=== PATIENT | male | born 1965 | race African-American/Black ===

== ENCOUNTER 2016-08-02 20:53 | Inpatient (IN) | payer OTHER ==
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
[2016-08-02 21:29] VITALS: BMI 31.6
[2016-08-02] MEDS ORDERED: NICOTINE POLACRILEX 2 MG GUM BC PRN (21:29)
[2016-08-02] MEDS ORDERED: MAG HYDROX/AL HYDROX/SIMETH 30 ML UNIT-DOSE CUP PO PRN (21:29)
[2016-08-02] MEDS ORDERED: guaiFENesin/D-METHORPHAN HB 10 ML UNIT-DOSE CUPS PO PRN (21:29)
[2016-08-02] MEDS ORDERED: IBUPROFEN 400 MG TABLET (FP) PO PRN (21:29)
[2016-08-02] MEDS ORDERED: MENTHOL/PHENOL 1 EACH UD MM PRN (21:29)
[2016-08-02] MEDS ORDERED: hydrOXYzine PAMOATE 50 MG CAPSULE (FP) PO PRN (21:29)
[2016-08-02] MEDS ORDERED: LOPERAMIDE HCL 2 MG CAPSULE PO PRN (21:29)
[2016-08-02] MEDS ORDERED: ACETAMINOPHEN 325 MG TABLET (FP) PO PRN (21:29)
[2016-08-02] MEDS ORDERED: MAGNESIUM HYDROX 2400MG/30ML ORAL SUSPENSION 30 ML CUP PO PRN (21:29)
[2016-08-02] MEDS ORDERED: MAGNESIUM CITRATE 300 ML BOTTLE PO PRN (21:29)
[2016-08-02] MEDS ORDERED: P-EPHED 60MG/TRIPROLIDI 2.5MG TABLET PO PRN (21:29)
[2016-08-02] MEDS ORDERED: chlordiazePOXIDE HCL 25 MG CAPSULE PO PRN (21:29)
[2016-08-02] MEDS: NICOTINE 21 MG/24 HOURS TOPICAL PATCH TD SCH (23:01)
[2016-08-02] MEDS: chlordiazePOXIDE HCL 25 MG CAPSULE PO SCH (23:02)
[2016-08-02] MEDS: THIAMINE HCL 100 MG TABLET (FP) PO SCH (23:03)
[2016-08-02] MEDS: diphenhydrAMINE HCL 50 MG CAPSULE PO PRN (23:03)
[2016-08-03] MEDS: chlordiazePOXIDE HCL 25 MG CAPSULE PO SCH ×4 (05:35→22:10)
--- NOTE | 2016-08-03 10:21 | EKG ---
Test Reason : Blood Pressure : / mmHG Vent. Rate : 044 BPM Atrial Rate : 044 BPM P-R Int : 152 ms QRS Dur : 084 ms QT Int : 436 ms P-R-T Axes : 070 056 004 degrees QTc Int : 372 ms MARKED SINUS BRADYCARDIA ABNORMAL ECG WHEN COMPARED WITH ECG OF 02-AUG-2016 21:31, QT HAS SHORTENED Confirmed by AKASH SLOAN MD ([id number]) on 08/03/2016 10:20:50 AM Referred By: Confirmed By:AKASH SLOAN MD
--- NOTE | 2016-08-03 10:22 | EKG ---
Test Reason : Blood Pressure : / mmHG Vent. Rate : 057 BPM Atrial Rate : 057 BPM P-R Int : 150 ms QRS Dur : 088 ms QT Int : 448 ms P-R-T Axes : 060 060 -03 degrees QTc Int : 436 ms SINUS BRADYCARDIA WITH SINUS ARRHYTHMIA NONSPECIFIC ST ABNORMALITY ABNORMAL ECG NO PREVIOUS ECGS AVAILABLE Confirmed by AKASH SLOAN MD ([id number]) on 08/03/2016 10:21:47 AM Referred By: Confirmed By:AKASH SLOAN MD
[2016-08-03] MEDS: PRENATAL VITAMINS W/ FOLIC ACID TABLET (FP) PO SCH (10:25)
[2016-08-03] MEDS: NICOTINE 21 MG/24 HOURS TOPICAL PATCH TD SCH (10:25)
[2016-08-03 10:30] LABS: MCH 26.2 pg (25.7-33.7); MCHC 32.9 g/dl (32.0-35.9); MEAN CELL VOLUME 79.7 fl (80-96); MEAN PLT VOLUME 9.6 fl (7.5-11.1); PLATELET COUNT 181 K/MM3 (134-434); RDW 15.6 % (11.9-15.9); WHITE BLOOD COUNT 6.1 K/mm3 (4.0-10.0)
[2016-08-03 10:36] LABS: ALBUMIN 3.5 g/dl (3.4-5.0); ANION GAP 8 (8-16); BILIRUBIN,TOTAL 0.5 mg/dL (0.2-1.0); CALCIUM 8.8 mg/dL (8.5-10.1); CO2 27 mmol/L (21-32); CREATININE 1.2 mg/dL (0.7-1.3); GLUCOSE,RANDOM 95 mg/dL (74-106); SGOT/AST 16 U/L (15-37); SGPT/ALT 28 U/L (12-78); TOT PROT 6.6 g/dl (6.4-8.2)
[2016-08-03 10:37] LABS: ALK PHOS 55 U/L (45-117)
--- NOTE | 2016-08-03 15:07 | PN ---
S CIWA - CIWA Score Nausea/Vomitin Muscle Tremors: 4-Moderate,w/Arms Extend Anxiety: 4-Mod. Anxious/Guarded Agitation: 4-Moderately Restless Paroxysmal Sweats: 2 Orientation: 0-Oriented Tacttile Disturbances: 1-Very Mild Itch/Numbness Auditory Disturbances: 0-None Visual Disturbances: 0-None Headache: 2-Mild CIWA-Ar Total Score: 20 BHS Progress Note (SOAP) Subjective: Sweating, restless, anxious, interrupted sleep, nausea Objective: 08/03/16 15:06 Last Vital Signs Temp Pulse Resp BP Pulse Ox 97.1 F L 67 18 125/67 08/03/16 13:22 08/03/16 13:22 08/03/16 13:22 08/03/16 13:22 Laboratory Tests 08/03/16 08/03/16 08/03/16 07:50 07:50 07:50 WBC 6.1 RBC 5.11 Hgb 13.4 Hct 40.7 MCV 79.7 L MCHC 32.9 RDW 15.6 Plt Count 181 MPV 9.6 Sodium 144 Potassium 4.1 Chloride 109 H Carbon Dioxide 27 Anion Gap 8 BUN 14 Creatinine 1.2 Creat Clearance w eGFR > 60 Random Glucose 95 Calcium 8.8 Total Bilirubin 0.5 AST 16 ALT 28 Alkaline Phosphatase 55 Total Protein 6.6 Albumin 3.5 RPR Titer Nonreactive Labs noted Assessment: 08/03/16 15:07 Withdrawal symptoms Plan: Continue detox
[2016-08-03] MEDS: diphenhydrAMINE HCL 50 MG CAPSULE PO PRN (22:10)
[2016-08-03] MEDS: THIAMINE HCL 100 MG TABLET (FP) PO SCH (22:10)
[2016-08-04] MEDS: chlordiazePOXIDE HCL 25 MG CAPSULE PO SCH ×3 (05:41→17:32)
[2016-08-04] MEDS: PRENATAL VITAMINS W/ FOLIC ACID TABLET (FP) PO SCH (10:13)
[2016-08-04] MEDS: NICOTINE 21 MG/24 HOURS TOPICAL PATCH TD SCH (10:14)
[2016-08-04 10:18] LABS: URINE APPEARANCE CLEAR; URINE BILIRUBIN NEGATIVE (NEGATIVE); URINE BLOOD NEGATIVE (NEGATIVE); URINE COLOR STRAW; URINE GLUCOSE (UA) NEGATIVE (NEGATIVE); URINE KETONE NEGATIVE (NEGATIVE); URINE LEUK ESTERASE NEGATIVE (NEGATIVE); URINE NITRITE NEGATIVE (NEGATIVE); URINE PROTEIN NEGATIVE (NEGATIVE); URINE UROBILINOGEN NEGATIVE E.U./dl (0.2-1.0)
--- NOTE | 2016-08-04 14:24 | PN ---
S CIWA - CIWA Score Nausea/Vomitin-No Nausea/No Vomiting Muscle Tremors: 4-Moderate,w/Arms Extend Anxiety: 3 Agitation: 3 Paroxysmal Sweats: 3 Orientation: 0-Oriented Tacttile Disturbances: 0-None Auditory Disturbances: 0-None Visual Disturbances: 0-None Headache: 0-None Present CIWA-Ar Total Score: 13 S Progress Note (SOAP) Subjective: Anxiety,tremors,sweating,interrupted sleep,restless Objective: 08/04/16 14:23 Vital Signs - 8 hr 08/04/16 08/04/16 08/04/16 06:47 07:36 09:51 Temperature 97.7 F 97.6 F Pulse Rate 75 67 83 Respiratory 18 18 Rate Blood Pressure 158/102 160/94 141/94 08/04/16 13:49 Temperature 98.1 F Pulse Rate 81 Respiratory 18 Rate Blood Pressure 134/86 Laboratory Last Values WBC 6.1 K/mm3 (4.0-10.0) 08/03/16 07:50 RBC 5.11 M/mm3 (4.00-5.60) 08/03/16 07:50 Hgb 13.4 GM/dL (11.7-16.9) 08/03/16 07:50 Hct 40.7 % (35.4-49) 08/03/16 07:50 MCV 79.7 fl (80-96) L 08/03/16 07:50 MCHC 32.9 g/dl (32.0-35.9) 08/03/16 07:50 RDW 15.6 % (11.9-15.9) 08/03/16 07:50 Plt Count 181 K/MM3 (134-434) 08/03/16 07:50 MPV 9.6 fl (7.5-11.1) 08/03/16 07:50 Sodium 144 mmol/L (136-145) 08/03/16 07:50 Potassium 4.1 mmol/L (3.5-5.1) 08/03/16 07:50 Chloride 109 mmol/L (98-107) H 08/03/16 07:50 Carbon Dioxide 27 mmol/L (21-32) 08/03/16 07:50 Anion Gap 8 (8-16) 08/03/16 07:50 BUN 14 mg/dL (7-18) 08/03/16 07:50 Creatinine 1.2 mg/dL (0.7-1.3) 08/03/16 07:50 Creat Clearance w eGFR > 60 (>60) 08/03/16 07:50 Random Glucose 95 mg/dL (74-106) 08/03/16 07:50 Calcium 8.8 mg/dL (8.5-10.1) 08/03/16 07:50 Total Bilirubin 0.5 mg/dL (0.2-1.0) 08/03/16 07:50 AST 16 U/L (15-37) 08/03/16 07:50 ALT 28 U/L (12-78) 08/03/16 07:50 Alkaline Phosphatase 55 U/L (45-117) 08/03/16 07:50 Total Protein 6.6 g/dl (6.4-8.2) 08/03/16 07:50 Albumin 3.5 g/dl (3.4-5.0) 08/03/16 07:50 Urine Color Straw 08/04/16 08:00 Urine Appearance Clear 08/04/16 08:00 Urine pH 6.0 (5.0-8.0) 08/04/16 08:00 Urine Protein Negative (NEGATIVE) 08/04/16 08:00 Urine Glucose (UA) Negative (NEGATIVE) 08/04/16 08:00 Urine Ketones Negative (NEGATIVE) 08/04/16 08:00 Urine Blood Negative (NEGATIVE) 08/04/16 08:00 Urine Nitrite Negative (NEGATIVE) 08/04/16 08:00 Urine Bilirubin Negative (NEGATIVE) 08/04/16 08:00 Urine Urobilinogen Negative E.U./dl (0.2-1.0) 08/04/16 08:00 Ur Leukocyte Esterase Negative (NEGATIVE) 08/04/16 08:00 RPR Titer Nonreactive (NONREACTIVE) 08/03/16 07:50 Hepatitis C Antibody <0.1 s/co ratio (0.0-0.9) 08/03/16 07:50 labs noted Assessment: 08/04/16 14:23 Withdrawal sx. Plan: Continue detox
[2016-08-04 17:50] VITALS: BP 129/69; PULSE 83; TEMP 97.6
--- NOTE | 2016-08-04 20:31 | DS ---
[facility] Detox Discharge Summary Admission Date: 08/02/16 Discharge Date: 08/04/16 - History Present History: Alcohol Dependence, Cannabis Dependence, Cocaine Dependence Additional Comments: PATIENT INSISTS TO LEAVE THE FACILITY REFUSES TO WAIT FACE TO FACE WITH THE PROVIDER Pertinent Past History: NICOTINE DEPENDENCE - Physical Exam Results Vital Signs: Vital Signs Temperature 97.6 F 08/04/16 17:50 Pulse Rate 83 08/04/16 17:50 Respiratory Rate 18 08/04/16 17:50 Blood Pressure 129/69 08/04/16 17:50 O2 Sat by Pulse Oximetry (%) Pertinent Admission Physical Exam Findings: WITHDRAWAL SX Laboratory Last Values WBC 6.1 K/mm3 (4.0-10.0) 08/03/16 07:50 RBC 5.11 M/mm3 (4.00-5.60) 08/03/16 07:50 Hgb 13.4 GM/dL (11.7-16.9) 08/03/16 07:50 Hct 40.7 % (35.4-49) 08/03/16 07:50 MCV 79.7 fl (80-96) L 08/03/16 07:50 MCHC 32.9 g/dl (32.0-35.9) 08/03/16 07:50 RDW 15.6 % (11.9-15.9) 08/03/16 07:50 Plt Count 181 K/MM3 (134-434) 08/03/16 07:50 MPV 9.6 fl (7.5-11.1) 08/03/16 07:50 Sodium 144 mmol/L (136-145) 08/03/16 07:50 Potassium 4.1 mmol/L (3.5-5.1) 08/03/16 07:50 Chloride 109 mmol/L (98-107) H 08/03/16 07:50 Carbon Dioxide 27 mmol/L (21-32) 08/03/16 07:50 Anion Gap 8 (8-16) 08/03/16 07:50 BUN 14 mg/dL (7-18) 08/03/16 07:50 Creatinine 1.2 mg/dL (0.7-1.3) 08/03/16 07:50 Creat Clearance w eGFR > 60 (>60) 08/03/16 07:50 Random Glucose 95 mg/dL (74-106) 08/03/16 07:50 Calcium 8.8 mg/dL (8.5-10.1) 08/03/16 07:50 Total Bilirubin 0.5 mg/dL (0.2-1.0) 08/03/16 07:50 AST 16 U/L (15-37) 08/03/16 07:50 ALT 28 U/L (12-78) 08/03/16 07:50 Alkaline Phosphatase 55 U/L (45-117) 08/03/16 07:50 Total Protein 6.6 g/dl (6.4-8.2) 08/03/16 07:50 Albumin 3.5 g/dl (3.4-5.0) 08/03/16 07:50 Urine Color Straw 08/04/16 08:00 Urine Appearance Clear 08/04/16 08:00 Urine pH 6.0 (5.0-8.0) 08/04/16 08:00 Ur Specific [place] 1.020 (1.005-1.025) 08/04/16 08:00 Urine Protein Negative (NEGATIVE) 08/04/16 08:00 Urine Glucose (UA) Negative (NEGATIVE) 08/04/16 08:00 Urine Ketones Negative (NEGATIVE) 08/04/16 08:00 Urine Blood Negative (NEGATIVE) 08/04/16 08:00 Urine Nitrite Negative (NEGATIVE) 08/04/16 08:00 Urine Bilirubin Negative (NEGATIVE) 08/04/16 08:00 Urine Urobilinogen Negative E.U./dl (0.2-1.0) 08/04/16 08:00 Ur Leukocyte Esterase Negative (NEGATIVE) 08/04/16 08:00 RPR Titer Nonreactive (NONREACTIVE) 08/03/16 07:50 Hepatitis C Antibody <0.1 s/co ratio (0.0-0.9) 08/03/16 07:50 LAB NOTED - Treatment Hospital Course: Detox Protocol Followed, Responded well - Medication Discharge Medications: Ambulatory Orders NK [No Known Home Medication] 08/02/16 - AMA Did Patient Leave Against Medical Advice: Yes
[2016-08-04] MEDS ORDERED: chlordiazePOXIDE 5 MG CAPSULE PO SCH (23:00)
[2016-08-05] MEDS ORDERED: chlordiazePOXIDE HCL 10 MG CAPSULE PO SCH (23:00)
== END 2016-08-04 18:30 | disposition left against medical advice (07) | DRG 770 ==
LOC: YASAS 20:53 → Y3N 21:11
PROVIDERS: ADMIT Internal Medicine; ATTEND Internal Medicine
PROC: HZ2ZZZZ Detoxification Services for Substance Abuse Treatment (ICD-10-PCS; principal; 2016-08-02)
DX: F10.230 Alcohol dependence with withdrawal, uncomplicated (principal); F14.20 Cocaine dependence, uncomplicated; F12.20 Cannabis dependence, uncomplicated; F17.210 Nicotine dependence, cigarettes, uncomplicated; R76.11 Nonspecific reaction to tuberculin skin test without active tuberculosis
CPT/HCPCS: 36415; 71020-TC; 80053; 81003; 85027; 86593; 86803; 93005; 93010

== ENCOUNTER 2021-08-29 17:03 | Inpatient (IN) | payer OTHER ==
[2021-08-29 17:42] VITALS: BMI 31.8
[2021-08-29] MEDS ORDERED: BISMUTH SUBSALICYLATE 524 MG/30 ML PO PRN (18:38)
[2021-08-29] MEDS ORDERED: MAGNESIUM CITRATE 300 ML BOTTLE PO PRN (18:38)
[2021-08-29] MEDS ORDERED: IBUPROFEN 400 MG TABLET (FP) PO PRN (18:38)
[2021-08-29] MEDS ORDERED: LOPERAMIDE HCL 2 MG CAPSULE PO PRN (18:38)
[2021-08-29] MEDS ORDERED: ONDANSETRON *ODT* 4 MG TABLET SL PRN (18:38)
[2021-08-29] MEDS ORDERED: MAGNESIUM HYDROX 2400MG/30ML ORAL SUSPENSION 30 ML CUP PO PRN (18:38)
[2021-08-29] MEDS ORDERED: DICYCLOMINE HCL 10 MG CAPSULE PO PRN (18:38)
[2021-08-29] MEDS ORDERED: ACETAMINOPHEN 325 MG TABLET (FP) PO PRN ×2 (18:38)
[2021-08-29] MEDS ORDERED: BENZOCAINE/MENTHOL (CHLORASEPTIC ) LOZENGE MM PRN (18:38)
[2021-08-29] MEDS ORDERED: MAG HYDROX/AL HYDROX/SIMETH 30 ML UNIT-DOSE CUP PO PRN (18:38)
[2021-08-29] MEDS ORDERED: cloNIDine HCL 0.1 MG TABLET PO ONE (19:18)
[2021-08-29] MEDS: IBUPROFEN 600 MG TABLET (FP) PO PRN (20:01)
[2021-08-29] MEDS: NICOTINE 14 MG/24 HOURS TOPICAL PATCH TD SCH (20:18)
[2021-08-29] MEDS: hydrOXYzine PAMOATE 25 MG CAPSULE (FP) PO SCH (22:48)
[2021-08-29] MEDS: MELATONIN 5 MG TABLETS PO SCH (22:48)
[2021-08-29] MEDS: THIAMINE HCL 100 MG TABLET (FP) PO SCH (22:49)
[2021-08-29] MEDS: METHOCARBAMOL 500 MG TABLET PO PRN (22:49)
[2021-08-30] MEDS: hydrOXYzine PAMOATE 25 MG CAPSULE (FP) PO SCH ×5 (07:21→22:39)
[2021-08-30] MEDS: NICOTINE 14 MG/24 HOURS TOPICAL PATCH TD SCH (10:13)
[2021-08-30] MEDS: PRENATAL VITAMINS W/ FOLIC ACID TABLET (FP) PO SCH (10:13)
[2021-08-30 12:51] LABS: HEMATOCRIT 38.6 % (35.4-49); HEMOGLOBIN 12.8 GM/dL (11.7-16.9); MCH 26.7 pg (25.7-33.7); MCHC 33.1 g/dl (32.0-35.9); MEAN CELL VOLUME 80.6 fl (80-96); MEAN PLT VOLUME 9.3 fl (7.5-11.1); PLATELET COUNT 180 10^3/uL (134-434); RBC 4.78 M/mm3 (4.00-5.60); RDW 15.4 % (11.9-15.9); WHITE BLOOD COUNT 5.6 K/mm3 (4.0-10.0)
[2021-08-30 13:20] LABS: ALBUMIN 3.5 g/dl (3.4-5.0); CALCIUM 8.8 mg/dL (8.5-10.1)
[2021-08-30 13:22] LABS: BLOOD UREA NITROGEN 17.6 mg/dL (7-18)
[2021-08-30 13:23] LABS: CREATININE 1.2 mg/dL (0.55-1.3)
[2021-08-30 13:25] LABS: BILIRUBIN,TOTAL 0.6 mg/dL (0.2-1); TOT PROT 6.5 g/dl (6.4-8.2)
[2021-08-30] MEDS: METHOCARBAMOL 500 MG TABLET PO PRN (17:42)
[2021-08-30] MEDS: IBUPROFEN 600 MG TABLET (FP) PO PRN (17:43)
[2021-08-30] MEDS: THIAMINE HCL 100 MG TABLET (FP) PO SCH (22:39)
[2021-08-30] MEDS: MELATONIN 5 MG TABLETS PO SCH (22:39)
[2021-08-31] MEDS: hydrOXYzine PAMOATE 25 MG CAPSULE (FP) PO SCH ×2 (07:28→12:37)
[2021-08-31 09:21] VITALS: TEMP 98.2
[2021-08-31] MEDS: PRENATAL VITAMINS W/ FOLIC ACID TABLET (FP) PO SCH (12:36)
[2021-08-31] MEDS: NICOTINE 14 MG/24 HOURS TOPICAL PATCH TD SCH (12:36)
[2021-08-31 13:43] VITALS: BP 148/82; PULSE 75
== END 2021-08-31 14:22 | disposition home or self-care (01) | DRG 774 ==
LOC: YASAS 17:03 → Y3N 18:45
PROVIDERS: ADMIT Allergy & Immunology; ATTEND Surgery
PROC: HZ2ZZZZ Detoxification Services for Substance Abuse Treatment (ICD-10-PCS; principal; 2021-08-29)
DX: F10.230 Alcohol dependence with withdrawal, uncomplicated (principal); F14.20 Cocaine dependence, uncomplicated; F12.20 Cannabis dependence, uncomplicated; F17.210 Nicotine dependence, cigarettes, uncomplicated; Z91.013 Allergy to seafood
CPT/HCPCS: 36415; 71046-TC-FY; 80053; 85027; 86780; C9803-CS; J0735; U0003; U0005

== ENCOUNTER 2021-10-11 16:11 | Inpatient (IN) | payer OTHER ==
[2021-10-11 17:36] VITALS: BMI 29.5
[2021-10-11] MEDS ORDERED: METHOCARBAMOL 500 MG TABLET PO PRN (21:32)
[2021-10-11] MEDS ORDERED: NICOTINE POLACRILEX 2 MG GUM BUC PRN (21:32)
[2021-10-11] MEDS ORDERED: LOPERAMIDE HCL 2 MG CAPSULE PO PRN (21:32)
[2021-10-11] MEDS ORDERED: MAGNESIUM HYDROX 2400MG/30ML ORAL SUSPENSION 30 ML CUP PO PRN (21:32)
[2021-10-11] MEDS ORDERED: ACETAMINOPHEN 325 MG TABLET (FP) PO PRN ×2 (21:32)
[2021-10-11] MEDS ORDERED: BENZOCAINE/MENTHOL (CHLORASEPTIC ) LOZENGE MM PRN (21:32)
[2021-10-11] MEDS ORDERED: BISMUTH SUBSALICYLATE 524 MG/30 ML PO PRN (21:32)
[2021-10-11] MEDS ORDERED: DICYCLOMINE HCL 10 MG CAPSULE PO PRN (21:32)
[2021-10-11] MEDS ORDERED: guaiFENesin 200 MG/10 ML 10 ML UNIT-DOSE CUPS PO PRN (21:32)
[2021-10-11] MEDS ORDERED: MAG HYDROX/AL HYDROX/SIMETH 30 ML UNIT-DOSE CUP PO PRN (21:32)
[2021-10-11] MEDS ORDERED: P-EPHED 60MG/TRIPROLIDI 2.5MG TABLET PO PRN (21:32)
[2021-10-11] MEDS ORDERED: MAGNESIUM CITRATE 300 ML BOTTLE PO PRN (21:32)
[2021-10-11] MEDS ORDERED: IBUPROFEN 400 MG TABLET (FP) PO PRN (21:32)
[2021-10-11] MEDS ORDERED: IBUPROFEN 600 MG TABLET (FP) PO PRN (21:32)
[2021-10-11] MEDS ORDERED: NICOTINE 10 MG CARTRIDGE (INHALER) IH PRN (21:32)
[2021-10-11] MEDS ORDERED: ONDANSETRON *ODT* 4 MG TABLET SL PRN (21:32)
[2021-10-11] MEDS: hydrOXYzine PAMOATE 25 MG CAPSULE (FP) PO PRN (23:12)
[2021-10-11] MEDS: THIAMINE HCL 100 MG TABLET (FP) PO SCH (23:12)
[2021-10-11] MEDS ORDERED: hydrOXYzine PAMOATE 25 MG CAPSULE (FP) PO ONE (23:14)
[2021-10-12] MEDS: hydrOXYzine PAMOATE 25 MG CAPSULE (FP) PO PRN ×2 (06:23→22:37)
[2021-10-12] MEDS: PRENATAL VITAMINS W/ FOLIC ACID TABLET (FP) PO SCH (10:54)
[2021-10-12 14:27] LABS: ALBUMIN 3.6 g/dl (3.4-5.0); CALCIUM 8.9 mg/dL (8.5-10.1); HEMATOCRIT 38.8 % (35.4-49); HEMOGLOBIN 13.2 GM/dL (11.7-16.9); MCH 27.2 pg (25.7-33.7); MEAN CELL VOLUME 80.1 fl (80-96); MEAN PLT VOLUME 9.9 fl (7.5-11.1); PLATELET COUNT 191 10^3/uL (134-434); RBC 4.85 M/mm3 (4.00-5.60); RDW 15.7 % (11.9-15.9); WHITE BLOOD COUNT 5.6 K/mm3 (4.0-10.0)
[2021-10-12 14:28] LABS: BLOOD UREA NITROGEN 14.8 mg/dL (7-18)
[2021-10-12 14:30] LABS: CREATININE 1.1 mg/dL (0.55-1.3)
[2021-10-12 14:31] LABS: TOT PROT 7.1 g/dl (6.4-8.2)
[2021-10-12 14:32] LABS: BILIRUBIN,TOTAL 0.4 mg/dL (0.2-1)
[2021-10-12] MEDS: MELATONIN 5 MG TABLETS PO PRN (22:37)
[2021-10-12] MEDS: THIAMINE HCL 100 MG TABLET (FP) PO SCH (22:37)
[2021-10-13] MEDS: PRENATAL VITAMINS W/ FOLIC ACID TABLET (FP) PO SCH (10:23)
[2021-10-13] MEDS: hydrOXYzine PAMOATE 25 MG CAPSULE (FP) PO PRN ×3 (10:25→22:34)
[2021-10-13 12:58] VITALS: RESP 18
[2021-10-13] MEDS ORDERED: cloNIDine HCL 0.1 MG TABLET PO PRN (17:49)
[2021-10-13] MEDS: THIAMINE HCL 100 MG TABLET (FP) PO SCH (22:34)
[2021-10-13] MEDS: MELATONIN 5 MG TABLETS PO PRN (22:34)
[2021-10-14 08:39] VITALS: BP 141/88; PULSE 74; TEMP 98.8
[2021-10-14] MEDS: PRENATAL VITAMINS W/ FOLIC ACID TABLET (FP) PO SCH (10:27)
== END 2021-10-14 11:33 | disposition home or self-care (01) | DRG 774 ==
LOC: YASAS 16:11 → Y3N 23:48
PROVIDERS: ADMIT Allergy & Immunology; ATTEND Surgery
PROC: HZ2ZZZZ Detoxification Services for Substance Abuse Treatment (ICD-10-PCS; principal; 2021-10-11)
DX: F10.20 Alcohol dependence, uncomplicated (principal); F14.20 Cocaine dependence, uncomplicated; F12.20 Cannabis dependence, uncomplicated; F17.210 Nicotine dependence, cigarettes, uncomplicated; Z91.013 Allergy to seafood
CPT/HCPCS: 36415; 80053; 85027; 86780; 87811; C9803-CS; U0003; U0005